=== PATIENT | female | born 1960 | race Caucasian/White ===

== ENCOUNTER 2020-08-26 08:46 | Emergency (ER) | payer OTHER, SELFPAY ==
--- NOTE | ~2020-08-26 | XR_ITS ---
EXAMINATION: XR wrist RT min 3V DATE: 08/26/2020 09:22 INDICATION: Radial sided right wrist pain post fall TECHNIQUE: Posteroanterior, ulnar deviation, oblique, and lateral views of the right wrist were obtai keila. COMPARISON: none FINDINGS: Relatively symmetric appearing intra-articular fracture of the distal right radius with 1 mm wide chelita ent fracture line involving the lunate fossa with fracture line extending to involve the dorsal nonar ticular cortex as well as the ulnar cortex immediately proximal to the articular surface of the dista l radioulnar joint. Alignment remains near-anatomic. No other fractures identified. Polyarticular ost eoarthritis, moderate to severe at the triscaphe joint and mild at the distal radioulnar, wrist, firs t carpometacarpal and first metacarpophalangeal joints. Diffuse osteopenia. IMPRESSION: 1. Nondisplaced minimally displaced likely mildly comminuted intra-articular fracture of the distal r ight radius. 2. Polyarticular osteoarthritis at the right hand and wrist, moderate to severe at the triscaphe join t. Reviewed, dictated and finalized at location A. OR RELATIONSHIP MANAGER IMPRESSION: 1. Nondisplaced minimally displaced likely mildly comminuted intra-articular fr acture of the distal right radius. 2. Polyarticular osteoarthritis at the right hand and wrist, moderate to severe at the triscaphe joint.
--- NOTE | ~2020-08-26 | XR_ITS ---
EXAMINATION: XR wrist LT min 3V DATE: 08/26/2020 09:21 INDICATION: Radial sided left wrist pain post fall TECHNIQUE: Posteroanterior, ulnar deviation, oblique, and lateral views of the left wrist were obtain ed. COMPARISON: none FINDINGS: Intra-articular fracture of the distal left radius. This includes a minimally displaced ulnar sided s agittally oriented fracture which involves the lunate fossa with no significant fracture gap or incon gruity as well as mild buckling along the nonarticular dorsal cortex. Alignment remains essentially a natomic. No other fractures identified. Polyarticular osteoarthritis, moderate severity at the trisca phe joint and mild at the distal radioulnar, radiocarpal, first carpal metacarpal and first metacarpo phalangeal joints. IMPRESSION: 1. Likely mildly comminuted non to minimally displaced intra-articular fracture of the distal left ra dius. 2. Mild to moderate polyarticular osteoarthritis at the left hand and wrist. Reviewed, dictated and finalized at location A. ET DEVELOPMENT MANAGER IMPRESSION: 1. Likely mildly comminuted non to minimally displaced intra-articular fracture of the distal left radius. 2. Mild to moderate polyarticular osteoarthritis at the left hand and wrist.
--- NOTE | ~2020-08-26 | XR_ITS ---
XR hip RT 2V w AP pelvis DATE: 08/26/2020 09:21 INDICATION: Fall this morning. Right hip pain. TECHNIQUE: AP pelvis. AP and lateral views of right hip. COMPARISON: None FINDINGS: No pelvic fracture or bone destruction. Normal alignment at the pubic symphysis and sacroil iac joints. No fracture or dislocation, avascular necrosis or bone destruction of the right hip. IMPRESSION: No pelvic or right hip fracture or dislocation Reviewed, dictated and finalized at location A. INTEGRATION ARCHITECT
--- NOTE | 2020-08-26 08:51 | ED.UPPEXIN ---
HPI - Extremity Injury (Upper) General Chief Complaint: Extremity Injury, Upper Stated Complaint: BILAT WRIST INJURY Time Seen by Provider: 08/26/20 08:51 Source: patient and RN notes reviewed History of Present Illness HPI narrative: Patient is a 60-year-old female who presents the urgent care with complaints of bilateral wrist pain/injury. 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 Patient states the incident happened at 7:30 AM this morning. Patient states that she takes 2 ibuprofen in the morning for some chronic left knee pain and had taken those prior to the injury. States that she is also having some right hip discomfort but it gets better as she walks . Patient denies of any loss of consciousness or hitting her head. Patient states that she was able to get up after the incident but has been very painful to use her hands. No other acute complaints. No acute distress noted. Patient aware of the plan of care. Some parts of this dictation were generated by voice recognition software and may contain typographical and/or grammatical inaccuracies. Related Data Home Medications Medication Instructions Recorded Confirmed atenolol 25 mg PO DAILY 08/26/20 08/26/20 omeprazole 20 mg PO DAILY 08/26/20 08/26/20 Allergies Allergy/AdvReac Type Severity Reaction Status Date / Time prednisone Allergy Severe INCREASED Verified 08/26/20 08:56 PALPITATIONS latex Allergy Intermediate SWELLING, Verified 08/26/20 08:56 ITCHING, RASH codeine Allergy Unknown HIVES Verified 08/26/20 08:56 Review of Systems Review of Systems: Narrative: CONSTITUTIONAL: Denies fever, chills, or sweats. EYES: Denies visual changes, redness, or discharge. ENT: Denies rhinorrhea, congestion, sore throat, or otalgia. CARDIOVASCULAR: Denies chest pain, palpitations, or edema. RESPIRATORY: Denies cough or dyspnea. GASTROINTESTINAL: Denies abdominal pain, nausea, vomiting, or diarrhea. GENITOURINARY: Denies dysuria or hematuria. SKIN: Denies rash or itching. MUSCULOSKELETAL: Reports of bilateral wrist pain and swelling; reports of right hip pain NEUROLOGIC: Denies headache, numbness, or weakness. All other systems reviewed are negative, except as documented in HPI. PMFSH Comments At the time of my signature, I reviewed and agree with the nursing past medical, surgical, social, and family history. There is no relevant family history pertinent to the patient complaint. Exam Narrative: Exam Narrative: GENERAL: This is a well-nourished, well-developed patient, in no apparent distress. HEAD: normocephalic, atraumatic. EYES: PERRL. Sclera clear/white. Vision is grossly intact. EARS: External ears normal NOSE: External nose normal with no obvious nasal discharge, nares without redness, no rhinorrhea. THROAT: Mucous membranes moist NECK: Neck supple SKIN: warm, intact with no suspicious lesions or rash, good texture and turgor. NEURO: awake, alert, and oriented to person, place and time. There were no obvious focal neurologic abnormalities. EXTREMITIES: Mild bilateral medial/radial aspect wrist edema and tenderness. Obvious bilateral deformities. Bilateral positive strong radial pulses with capillary refill less than 2 seconds. Range of motion not tested to bilateral wrists, due to pain. Pain with technical support technician assessment. No obvious shortening to the right leg. Positive strong right pedal pulse. No anterior, posterior, or lateral hip tenderness. BACK: Nontender without deformity or crepitance. Course Vital Signs Vital signs: Vital Signs Temperature 96.9 F L 08/26/20 08:53 Pulse Rate 77 08/26/20 08:53 Respiratory Rate 16 08/26/20 08:53 Blood Pressure 147/88 H 08/26/20 08:53 Pulse Oximetry 100 08/26/20 08:53 Temperature 96.9 F L 08/26/20 08:53 Pulse Rate 77 08/26/20 08:53 Respiratory Rate
[2020-08-26 08:53] VITALS: BP 147/88; PULSE 77; RESP 16; TEMP 36.1; O2SAT 100
== END 2020-08-26 10:02 | disposition home or self-care (01) ==
PROVIDERS: Emergency Provider Nurse Practitioner Family
DX: S52.502A Unspecified fracture of the lower end of left radius, initial encounter for closed fracture (principal); S52.501A Unspecified fracture of the lower end of right radius, initial encounter for closed fracture; W18.09XA Striking against other object with subsequent fall, initial encounter; K21.9 Gastro-esophageal reflux disease without esophagitis
CPT/HCPCS: 29125; 73110; 73502; 99214; A4565; G0463

== ENCOUNTER → 2023-10-31 08:09 | Outpatient (CLI) | payer MEDICARE, SELFPAY ==
--- NOTE | ~2023-10-31 | CT_ITS ---
EXAMINATION: CT brain wo con DATE: 10/31/2023 08:39 INDICATION: Headache. Warmth behind right ear. TECHNIQUE: Computed tomography (CT) of the head was performed without intravenous contrast. The mA wa s adjusted according to patient size. Iterative reconstruction technique was employed. The dose-lengt h product was 645.69 mGy-cm. COMPARISON: None FINDINGS: There is no intracranial hemorrhage, acute infarction, or abnormal intracranial mass lesion . The ventricles are normal in size. The orbits are normal. The paranasal sinuses are clear. The mast oid air cells are normal. IMPRESSION: 1. Normal brain. Reviewed, dictated and finalized at location E. NSED MORTGAGE LOAN OFFICER IMPRESSION: 1. Normal brain.
== END ==
DX: R51.9 Headache, unspecified (principal)
CPT/HCPCS: 70450

== ENCOUNTER 2024-10-16 10:06 | Outpatient (CLI) | payer MEDICARE, SELFPAY ==
--- NOTE | ~2024-10-16 | CT_ITS ---
EXAMINATION: CT abdomen pelvis w con DATE: 10/16/2024 10:35 INDICATION: Right lower quadrant abdominal pain. TECHNIQUE: Computed tomography (CT) of the abdomen and pelvis was performed with 100 mL Omnipaque 350 intravenous contrast. Automated exposure control and iterative reconstruction technique were employe d. The dose-length product was 892.29 mGy-cm. COMPARISON: None. FINDINGS: The visualized portions of the lung bases demonstrate mild atelectasis. No pleural effusion . The heart size is normal. No pericardial effusion. There is a small sliding hiatal hernia. The live r is normal. There are changes of cholecystectomy. The spleen, pancreas, adrenal glands, and right ki dney are normal. There is a 6 mm cyst in left kidney. There are no dilated loops of bowel. The append ix is not visualized. There are no pathologically enlarged lymph nodes. There is no free intraperiton eal fluid. In the anterior peritoneum, there is a 6.3 x 2.3 x 4.8 cm infiltrative mass. There is an u mbilical hernia containing fat. There is severe lumbar spondylosis. Lumbar levoscoliosis is noted. IMPRESSION: 1. 6.3 cm infiltrative mass in the anterior peritoneum. The differential diagnosis includes fat necro sis, inflammation, venous malformation, desmoid, and less likely sarcoma. CT-guided biopsy is recomme nded. 2. Umbilical hernia containing fat. 3. Small sliding hiatal hernia. Reviewed, dictated and finalized at location A. S ETCHER HELPER IMPRESSION: 1. 6.3 cm infiltrative mass in the anterior peritoneum. The differential diagno sis includes fat necrosis, inflammation, venous malformation, desmoid, and less likely sarcoma. CT-guided biopsy is recommended. 2. Umbilical hernia containing fat. 3. Small sliding hiatal hernia.
[2024-10-16 10:23] LABS: Estimated Glomerular Filt Rate > 60
== END 2024-10-16 10:07 | disposition home or self-care (01) ==
LOC: MICIMG 10:07
DX: C48.2 Malignant neoplasm of peritoneum, unspecified (principal); K42.9 Umbilical hernia without obstruction or gangrene; K44.9 Diaphragmatic hernia without obstruction or gangrene
CPT/HCPCS: 74177; Q9967